=== PATIENT | female | born 1995 | race Caucasian/White ===

== ENCOUNTER → 2016-08-07 | Outpatient (CLI) | payer BC ==
--- NOTE | 2016-08-07 16:03 | US ---
EXAMINATION TYPE: US OB anatomy transabd DATE OF EXAM: 08/07/2016 2:17 PM COMPARISON: 06/06/2016 HISTORY: LARGE FOR DATE TECHNIQUE: Transabdominal (TA) EXAM MEASUREMENTS: GESTATIONAL AGE / DATING Physician Established: not established Dates by LMP: (20 weeks/ 4 days) EDC: 12/21/2016 Dates by First Scan: (20 weeks/4 days) EDC: 12/21/2016 Dates by Current Scan for: (19 weeks/0 days) EDC: 01/01/2017 SURVEY IUP: Single PLACENTA: Posterior PREVIA: No previa PIYUSH: 18 cm Normal CERVICAL LENGTH (transabdominal: norm > 3.0cm): 3.6 cm BIOMETRY PRESENTATION: Vertex LIE: Longitudinal BPD: 4.2 cm 18 weeks / 6 days HC: 16.1 cm 19 weeks / 0 days AC: 13.7 cm 19 weeks / 1 days FL: 2.9 cm 18 weeks / 4 days ESTIMATED WEIGHT IN GRAMS: 262 grams ESTIMATED WEIGHT IN LBS/OZS: 0 lbs. 9 oz. WEIGHT PERCENTAGE BASED ON ESTABLISHED DATE: % HC/AC: 1.18 FL/AC: 20 HEART RATE: 142 bpm RHYTHM: Normal ANATOMY SEEN (within normal limits unless otherwise noted): * Lateral Vent (< 1 cm) 0.8 cm * Cisterna Magna (< 1.1 cm) .025 cm * Nuchal Fold (< 0.6 cm) 0.1 cm * Cerebellum (varies with age) 1.9 cm Choroid Plexus (bilateral) Midline Falx Cavus Septi Pellucidi Four Chamber Heart Outflow tracts: LVOT/RVOT Stomach Situs Nose / Lips are not well demonstrated Diaphragm Kidneys (bilateral) Bladder Cord Insert Three Vessel Cord not seen with certainty. Longitudinal Spine Transverse Spine Arms (bilateral) Legs (bilateral) TECHNOLOGIST IMPRESSION: viable IUP, age within 2 weeks IMPRESSION: Single viable intrauterine corresponding to ultrasound age 19 weeks 0 days with estimated d ate of delivery 01 January 2017, limited survey
== END | disposition home or self-care (01) ==
LOC: RADUSWWP 13:34
PROVIDERS: ATTEND Obstetrics & Gynecology
DX: O36.62X0 Maternal care for excessive fetal growth, second trimester, not applicable or unspecified (principal); Z3A.19 19 weeks gestation of pregnancy
CPT/HCPCS: 76811

== ENCOUNTER → 2016-08-31 | Outpatient (CLI) | payer SELFPAY ==
--- NOTE | 2016-08-31 15:35 | US ---
EXAMINATION TYPE: US OB >= 14 wk fetus DATE OF EXAM: 08/31/2016 3:14 PM COMPARISON: US in PACS CLINICAL HISTORY: F/U to abn US Z36 F/U 3V cord not visualized on previous TECHNIQUE: Transvaginal (TV) and Transabdominal (TA) GESTATIONAL AGE / DATING Physician Established: (22 weeks/3 days) EDC: 01/01/2017 Dates by LMP: (24 weeks/0 days) EDC: 12/21/2016 Dates by First Scan: (24 weeks/0 days) EDC: 12/21/2013 Dates by Current Scan: (22 weeks/3 days) EDC: 01/01/2017 SURVEY IUP: Single PLACENTA: Posterior PREVIA: No Previa PIYUSH: 11.7 cm Normal CERVICAL LENGTH (transabdominal: norm > 3.0cm): 1.9 cm CERVICAL LENGTH (transvaginal: norm> 2.5cm): 2.5 cm (Supplemental transvaginal imaging performed to verify cervical length.) BIOMETRY PRESENTATION: Vertex BPD: 5.5 cm 22 weeks / 5 days HC: 20.5 cm 22 weeks / 4 days AC: 17.9 cm 22 weeks / 5 days FL: 3.7 cm 21 weeks / 5 days ESTIMATED WEIGHT IN GRAMS: 494 grams ESTIMATED WEIGHT IN LBS/OZS: 1 lbs. 1 oz. WEIGHT PERCENTAGE BASED ON ESTABLISHED DATES: 37.9% HC/AC: 1.14 Normal FL/AC: 21 Normal HEART RATE: 147 bpm RHYTHM: Normal Single, viable IUP/ 3V Cord not visualized on previous, visualized on today's scan and appears wnl/ S hortened cervix on TA and TV scans Results called to Gill at 's office at time of exam IMPRESSION: WADDELL FETUS PRESENT IN A VERTEX LIE WITH A GESTATIONAL AGE OF 22 WEEKS 3 DAYS +/- 2 WEEKS. ESTIM ATED DATE OF CONFINEMENT BASED ON THIS EXAMINATION IS 01/01/2017. PLEASE NOTE THE PRESENCE OF A SHORTENED CERVIX.
== END | disposition home or self-care (01) ==
LOC: RADUSWWP 14:41
PROVIDERS: ATTEND Obstetrics & Gynecology
DX: Z36 Encounter for antenatal screening of mother (principal); Z3A.22 22 weeks gestation of pregnancy
CPT/HCPCS: 76805; 76817

== ENCOUNTER → 2016-12-16 | Outpatient (CLI) | payer BC, OTHER ==
[2016-12-16 22:45] VITALS: BP 118/56; PULSE 77; RESP 18; TEMP 97.4
--- NOTE | 2016-12-17 07:31 | P.MSEPDOC ---
Presenting Problems - Arrival Data Date of Arrival on Unit: 12/16/16 Time of Arrival on Unit: 21:45 Mode of Transport: Wheelchair - Complaint OB-Reason for Admission/Chief Complaint: Possible Onset of Labor Medical History - Information : 1 Para: 0 Term: 0 : 0 Abortions: Spontaneous or Elective: 0 Number of Living Children: 0 - Gestational Age Expected Date of Delivery: 01/01/17 Gestational Age by DANY (wks/days): 37 Weeks and 6 Days Review of Systems - Review of Systems Constitutional: No problems Breast: No problems ENT: No problems Cardiovascular: No problems Respiratory: No problems Gastrointestinal: No problems Genitourinary: No problems Musculoskeletal: No problems Neurological: No problems Skin: No problems Vital Signs - Temperature Temperature: 97.4 F Temperature Source: Temporal Artery Scan - Pulse Right Brachial Pulse Rate: 77 Pulse Assessment Method: Automatic Cuff - Respirations Respiratory Rate: 18 Oxygen Delivery Method: Room Air O2 Sat by Pulse Oximetry: 97 - Blood Pressure Right Arm Blood Pressure: 118/56 Blood Pressure Mean: 76 Blood Pressure Source: Automatic Cuff Medical Screen Scoring (Pre) - Cervical Exam Dilation: 4-7 cm = 2 Effacement: More than 50% = 2 Membranes: Intact - Uterine Contractions Frequency: > 5 minutes apart = 1 Duration: N/A Intensity: N/A - Maternal Vital Signs Maternal Temperature: N/A Maternal Blood Pressure: N/A Signs of Preeclampsia: N/A Maternal Respirations: N/A - Maternal Trauma Maternal Trauma: N/A - Assessment Baseline FHR: 130 Heart Rate - NICHD Category: Category I (Normal) = 0 NST: Reactive Position: N/A - Total Score Total Score (Pre): 5 - Level of Risk Level of Risk: Low (0-5) Physician Notification (Pre) - Physician Notified Physician Notified Date: 12/16/16 Physician Notified Time: 22:09 Physician/Practitioner Notifed:: Dr. Saeed Spoke With: Dr. Saeed New Order Received: Yes - Notification Comment Comment: recheck cervical exam in an hour I agree with the RN Medical Screening Exam: Yes Risk & Benefit of care provided described in d/c instruction: Yes Diagnosis: FALSE LABOR AT OR AFTER 37 COMPLETED WEEKS OF GESTATION
== END | disposition home or self-care (01) ==
LOC: FBPOP 21:45
PROVIDERS: ATTEND Obstetrics & Gynecology
DX: O47.1 False labor at or after 37 completed weeks of gestation (principal); Z3A.37 37 weeks gestation of pregnancy

== ENCOUNTER 2016-12-17 05:45 | Outpatient (CLI) | payer BC, OTHER ==
[2016-12-17 06:27] VITALS: BP 107/54; PULSE 65; RESP 16; TEMP 95.9
--- NOTE | 2016-12-17 07:30 | P.MSEPDOC ---
Presenting Problems - Arrival Data Date of Arrival on Unit: 12/16/16 Time of Arrival on Unit: 05:45 Mode of Transport: Wheelchair - Complaint OB-Reason for Admission/Chief Complaint: Vaginal Bleeding Medical History - Information : 1 Para: 0 Term: 0 : 0 Abortions: Spontaneous or Elective: 0 Number of Living Children: 0 - Gestational Age Expected Date of Delivery: 01/01/17 Gestational Age by DANY (wks/days): 37 Weeks and 6 Days Review of Systems - Review of Systems Constitutional: No problems Breast: No problems ENT: No problems Cardiovascular: No problems Respiratory: No problems Gastrointestinal: No problems Genitourinary: No problems Musculoskeletal: No problems Neurological: No problems Skin: No problems Vital Signs - Temperature Temperature: 95.9 F Temperature Source: Temporal Artery Scan - Pulse Right Sitting Brachial Pulse Rate: 65 Pulse Assessment Method: Automatic Cuff - Respirations Respiratory Rate: 16 Oxygen Delivery Method: Room Air - Blood Pressure Right Arm Sitting Blood Pressure: 107/54 Blood Pressure Mean: 71 Blood Pressure Source: Automatic Cuff Medical Screen Scoring (Pre) - Cervical Exam Dilation: 4-7 cm = 2 Effacement: More than 50% = 2 Membranes: Intact - Uterine Contractions Frequency: > 5 minutes apart = 1 Duration: > 40 seconds = 2 - Maternal Vital Signs Maternal Temperature: N/A Maternal Blood Pressure: N/A Signs of Preeclampsia: N/A Maternal Respirations: N/A - Maternal Trauma Maternal Trauma: N/A - Assessment Baseline FHR: 120 Heart Rate - NICHD Category: Category I (Normal) = 0 NST: Reactive Position: N/A Station: N/A - Total Score Total Score (Pre): 7 - Level of Risk Level of Risk: Medium (6-9) Physician Notification (Pre) - Physician Notified Physician Notified Date: 12/17/16 Physician Notified Time: 06:09 Physician/Practitioner Notifed:: dr carrion Spoke With: dr carrion New Order Received: Yes - Notification Comment Comment: d/c pt home Disposition - Disposition Discharge Date: 12/17/16 Discharge Time: 06:15 I agree with the RN Medical Screening Exam: Yes Physician's MSE Comment: minimal vaginal bleeding after cervical exam earlier in the morning Risk & Benefit of care provided described in d/c instruction: Yes Diagnosis: FALSE LABOR AT OR AFTER 37 COMPLETED WEEKS OF GESTATION
== END 2016-12-17 06:15 | disposition home or self-care (01) ==
LOC: FBPOP 05:45
PROVIDERS: ATTEND Obstetrics & Gynecology
DX: O47.1 False labor at or after 37 completed weeks of gestation (principal); Z3A.37 37 weeks gestation of pregnancy
CPT/HCPCS: 59025; 99213

== ENCOUNTER 2016-12-26 10:18 | Inpatient (IN) | payer BC, OTHER ==
[2016-12-26] MEDS ORDERED: OXYTOCIN 10 UNIT/ML 1 ML VIAL IM PRN (11:23)
[2016-12-26] MEDS ORDERED: TERBUTALINE 1 MG/ML VIAL SQ PRN (11:23)
[2016-12-26] MEDS ORDERED: METHYLERGONOVINE 0.2 MG/ML 1 ML AMP IM PRN (11:23)
[2016-12-26] MEDS ORDERED: CARBOPROST TROMETHAMINE 250 MCG/ML 1 ML AMP IM PRN (11:23)
[2016-12-26] MEDS ORDERED: LIDOCAINE 1% (PF) 10 MG/ML (30 ML SDV) SQ PRN (11:23)
[2016-12-26] MEDS ORDERED: LACTATED RINGERS 1,000 ML IV SCH (11:30)
[2016-12-26 11:33] LABS: Basophils % (A) 0 %; CH 29.9; CHCM 32.9; Eosinophils # (A) 0.1 k/uL (0-0.7); Eosinophils % (A) 1 %; HCT 34.1 % (34.0-46.0); HDW 3.45; HGB 11.6 gm/dL (11.4-16.0); Luc # (Auto) 0.17; Luc % (Auto) 2; Lymphocytes # (A) 1.6 k/uL (1.0-4.8); Lymphocytes % (A) 20 %; MCH 30.8 pg (25.0-35.0); MCHC 33.8 g/dL (31.0-37.0); MCV 91.1 fL (80.0-100.0); Mean Platelet Volume 8.9; Monocytes # (A) 0.6 k/uL (0-1.0); Monocytes % (A) 8 %; Neutrophils # (A) 5.4 k/uL (1.3-7.7); Neutrophils % (A) 69 %; Poikilocytosis Slight; RBC 3.75 m/uL (3.80-5.40); RDW 13.9 % (11.5-15.5); WBC 7.8 k/uL (3.8-10.6); WBC (Perox) 8.22
[2016-12-26 11:49] VITALS: BMI 19.0
--- NOTE | 2016-12-26 12:41 | P.HPOB ---
History of Present Illness H&P Date: 12/26/16 Chief Complaint: Contractions This patient is a pleasant 21-year-old 1 para 0 female estimated date of confinement 01/01/2017 estimated gestational age 39 and one sevenths weeks who presented to my office today for routine OB visit had a few contractions found to be 6 cm dilated. Patient is thought to be in early labor. care has been complicated by a short cervix and she was followed [facility] at [facility] and has been on pelvic rest. otherwise has been uncomplicated. Review of Systems Constitutional: Denies chills, Denies fever Ears, nose, mouth and throat: Denies headache, Denies sore throat Cardiovascular: Denies chest pain, Denies shortness of breath Respiratory: Denies cough Gastrointestinal: Reports heartburn Genitourinary: Reports Menstruation: Reports amenorrhea Musculoskeletal: Denies myalgias Integumentary: Denies pruritus, Denies rash Neurological: Denies numbness, Denies weakness Past Medical History Past Medical History: No Reported History History of Any Multi-Drug Resistant Organisms: None Reported Additional Past Surgical History / Comment(s): nose at age 6 Past Anesthesia/Blood Transfusion Reactions: No Reported Reaction Past Psychological History: ADD/ADHD, Anxiety, Depression Additional Psychological History / Comment(s): no meds no currents symptoms Smoking Status: Never smoker Past Alcohol Use History: None Reported Past Drug Use History: None Reported - Past Family History Father Family Medical History: No Reported History Medications and Allergies Home Medications Medication Instructions Recorded Confirmed Type Pnv,Calcium 72/Iron/Folic Acid 1 tab PO DAILY 12/16/16 12/26/16 History [ Plus Tablet] Allergies Allergy/AdvReac Type Severity Reaction Status Date / Time No Known Allergies Allergy Verified 12/26/16 10:41 Exam - Vital Signs Vital signs: Vital Signs Temp Pulse Resp BP 12/26/16 10:40 98.2 F 78 16 109/76 Intake and Output 12/25/16 12/26/16 12/26/16 22:59 06:59 14:59 Other: Weight 56.699 kg Patient Weight 12/27/16 06:59 Weight 56.699 kg - OBG Physical Exam Abdomen: bowel sounds normal, no diffuse tenderness, no bruit present, no guarding noted, no hepatomegaly, no splenomegaly, no mass Vulva: both: normal Vagina: discharge (Patient yeast infection.) Cervix: Cervix is 6-7 cm completely effaced 0 station. Uterus: enlarged Results blood work shows she is A positive, rubella nonimmune, RPR nonreactive , hepatitis B negative, Glucola was normal, ultrasounds have been normal including a level III ultrasound. Group B strep was negative Result Diagrams: 12/26/16 11:27 Abnormal Lab Results - Last 24 Hours (Table) 12/26/16 Range/Units 11:27 RBC 3.75 L (3.80-5.40) m/uL Assessment and Plan (1) Normal labor Narrative/Plan: This is a pleasant 21-year-old 1 para 0 female 39 and one sevenths weeks gestation early active labor. Plan is anticipate normal vaginal delivery. Status: Acute
[2016-12-26] MEDS ORDERED: FLUCONAZOLE 150 MG TAB PO STA (14:27)
[2016-12-26] MEDS ORDERED: LANOLIN CREAM 5 GM TUBE TOPICAL PRN (14:27)
[2016-12-26] MEDS ORDERED: diphenhydrAMINE 25 MG CAP PO PRN (14:27)
[2016-12-26] MEDS ORDERED: ACETAMINOPHEN TAB 325 MG TAB PO PRN (14:27)
[2016-12-26] MEDS ORDERED: OXYTOCIN 20 UNITS/1000 ML NS 1,000 ML IV SCH (14:27)
[2016-12-26] MEDS ORDERED: MEASLES-MUMPS-RUBELLA VACC/PF 12,500 UNIT/0.5 ML VIAL SQ ONE (14:27)
[2016-12-26] MEDS ORDERED: ZOLPIDEM 5 MG TAB PO PRN (14:27)
[2016-12-26] MEDS ORDERED: BISACODYL 10 MG SUPP RECTAL PRN (14:27)
[2016-12-26] MEDS ORDERED: HYDROCORTISONE 2.5% RECTAL CREAM 30 GM TUBE RECTAL PRN (14:27)
[2016-12-26] MEDS ORDERED: diphenhydrAMINE 50 MG/ML 1 ML VIAL IVP PRN (14:27)
[2016-12-26] MEDS ORDERED: BENZOCAINE/MENTHOL SPRAY 1 GM/SPRAY AEROSOL TOPICAL PRN (14:27)
[2016-12-26] MEDS ORDERED: Acetaminophen-Codeine 300-30mg TAB PO PRN (14:27)
[2016-12-26] MEDS ORDERED: WITCH HAZEL 1 EACH MED..PAD TOPICAL PRN (14:27)
[2016-12-26] MEDS ORDERED: SIMETHICONE 80 MG CHEWABLE PO PRN (14:27)
[2016-12-26] MEDS: IBUPROFEN 600 MG TAB PO PRN (15:10)
--- NOTE | 2016-12-26 17:01 | P.PROBDLV ---
Vaginal Delivery Note - . Vaginal Delivery Note: Normal vaginal delivery viable male infant Apgars are 9 and 9 delivery time is 1416 hrs. Please see dictated H&P for intimate details of this patient's admission. Brief summary this is a pleasant 21-year-old 1 para 0 female 39 and one sevenths weeks gestation who presented to my office for routine visit and was found to be 6-7 cm dilated. Patient is thought to be in early labor. Patient is artificial rupture membranes for clear fluid. She does not request anything for pain control. She quickly progresses to complete pushes the head to the perineum. The posterior perineum was infiltrated with 1% lidocaine and a midline episiotomy is made. We then have controlled delivery of the 's head over the perineum. Mouth and nares are bulb suctioned and there is no evidence of a nuchal cord. With gentle downward traction we then have deliver the anterior and posterior shoulder and rest this infant's body. This is a vigorous viable male Apgars are 9 and 9 delivery time is 1416 hrs. After delivery of the the umbilical cord is doubly clamped and cut and appears to be trivascular. The placenta is then spontaneously delivered intact. Estimated blood loss is 175 mL. Inspection of the perineum shows a second-degree midline laceration which is repaired in the usual fashion with 3- 0 Vicryl. Excellent reapproximation is noted. There are no complications. All counts are correct 3. Infant and mother stable delivery room.
[2016-12-26] MEDS: Acetaminophen-Codeine 300-30mg TAB PO PRN (20:11)
[2016-12-27] MEDS: Acetaminophen-Codeine 300-30mg TAB PO PRN ×2 (03:35→09:53)
--- NOTE | 2016-12-27 06:45 | P.PNOBGVD ---
Subjective - Subjective Patient reports: Reports appetite normal, Reports voiding normally, Reports pain well controlled, Reports ambulating normally : doing well Objective - Latest Vital Signs Latest vital signs: Vital Signs Temp Pulse Resp BP Pulse Ox 12/27/16 03:26 98.3 F 82 12 115/64 12/26/16 23:50 97.9 F 89 15 97/60 12/26/16 20:02 98.0 F 77 14 106/56 97 12/26/16 16:28 97.7 F 74 17 107/58 12/26/16 15:58 69 17 100/59 12/26/16 15:30 70 17 103/50 12/26/16 15:13 69 17 107/59 12/26/16 14:58 80 16 109/52 12/26/16 14:43 78 16 103/57 12/26/16 14:28 98.1 F 77 16 111/60 12/26/16 10:40 98.2 F 78 16 109/76 Intake and Output 12/26/16 12/26/16 12/27/16 14:59 22:59 06:59 Other: # Voids 1 Weight 56.699 kg Patient Weight 12/27/16 06:59 Weight 56.699 kg - Exam Lungs: bilateral: normal Chest: Normal S1, Normal S2 Extremities: Present: normal Abdomen: Present: normal appearance, soft Uterus: Present: normal, firm - Labs Labs: Abnormal Lab Results - Last 24 Hours (Table) 12/26/16 Range/Units 11:27 RBC 3.75 L (3.80-5.40) m/uL Assessment and Plan (1) Normal labor Narrative/Plan: Post day #1. Patient is resting without complaints and most likely will go home later today. Vital signs are stable and she is afebrile. Uterus is firm nontender she's having normal lochia. My impression this is a normal course. Plan is to continue routine care discharge home later today. Current Visit: Yes Status: Acute Code(s): O80 - ENCOUNTER FOR FULL-TERM UNCOMPLICATED DELIVERY; Z37.9 - OUTCOME OF DELIVERY, UNSPECIFIED SNOMED Code(s ): 97914954
--- NOTE | 2016-12-27 06:46 | P.DS ---
Providers Date of admission: 12/26/16 10:18 Expected date of discharge: 12/27/16 Attending physician: Farrukh Botello Primary care physician: Stated None - Discharge Diagnosis(es) (1) Normal labor Current Visit: Yes Status: Acute Hospital Course: Please see dictated H&P for intimate details of this patient's admission. In brief summary this is a pleasant 21-year-old 1 para 0 female 39 and one sevenths weeks gestation admitted to labor and delivery in labor. Patient goes on to have a vaginal delivery viable male . Please see dictated delivery note. day #1 this patient is without complaints. Patient desires to go home. Patient's felt be stable for discharge home follow up with me in 6 weeks. Procedures: Normal vaginal delivery. Patient Condition at Discharge: Good Plan - Discharge Summary New Discharge Prescriptions: New Acetaminophen-Codeine 300-30mg [Tylenol w/codeine #3] 1 - 2 each PO Q4HR PRN #30 tab PRN Reason: Mild Pain exceeding Tylenol Ibuprofen [Motrin] 600 mg PO Q6HR PRN #40 tab PRN Reason: Mild Pain Or Fever >= 100.5 No Action Pnv,Calcium 72/Iron/Folic Acid [ Plus Tablet] 1 tab PO DAILY Discharge Medication List Pnv,Calcium 72/Iron/Folic Acid [ Plus Tablet] 1 tab PO DAILY 12/16/16 [ History] Acetaminophen-Codeine 300-30mg [Tylenol w/codeine #3] 1 - 2 each PO Q4HR PRN # 30 tab 12/27/16 [Rx] Ibuprofen [Motrin] 600 mg PO Q6HR PRN #40 tab 12/27/16 [Rx] Follow up Appointment(s)/Referral(s): Farrukh Botello MD [STAFF PHYSICIAN] - 6 Weeks Patient Instructions/Handouts: Vaginal Delivery (DC) Activity/Diet/Wound Care/Special Instructions: No intercourse or anything per vagina for 6 weeks. Please call if any fever, chills, excessive vaginal bleeding, and/or abdominal pain. Discharge Disposition: HOME SELF-CARE
[2016-12-27] MEDS: IBUPROFEN 600 MG TAB PO PRN (08:24)
[2016-12-27] MEDS: SENNOSIDES-DOCUSATE SODIUM 1 EACH TAB PO SCH ×2 (08:26)
[2016-12-27 13:40] VITALS: TEMP 98.2
[2016-12-27 16:54] VITALS: BP 116/75; PULSE 72; RESP 16
== END 2016-12-27 16:30 | disposition home or self-care (01) | DRG 775 ==
LOC: 4FBP 10:18
PROVIDERS: ADMIT Obstetrics & Gynecology; ATTEND Obstetrics & Gynecology
PROC: 10E0XZZ Delivery of Products of Conception, External Approach (ICD-10-PCS; principal; 2016-12-26)
PROC: 0KQM0ZZ Repair Perineum Muscle, Open Approach (ICD-10-PCS; 2016-12-26)
PROC: 0W8NXZZ Division of Female Perineum, External Approach (ICD-10-PCS; 2016-12-26)
DX: O26.873 Cervical shortening, third trimester (principal); O99.344 Other mental disorders complicating childbirth; F32.9 Major depressive disorder, single episode, unspecified; O70.1 Second degree perineal laceration during delivery; F41.9 Anxiety disorder, unspecified; F90.9 Attention-deficit hyperactivity disorder, unspecified type; Z37.0 Single live birth; Z3A.39 39 weeks gestation of pregnancy
CPT/HCPCS: 85025; 88307; 90707